=== PATIENT | male | born 1940 | race African-American/Black ===

== ENCOUNTER 2016-09-05 11:24 | Emergency (ER) | payer OTHER, MEDICARE ==
[~2016-09-05] VITALS: Ht 195.6 cm; Wt 140.7 kg
[~2016-09-05 11:24] MED LIST: ALDACTONE12.5 MG PO; ALDACTONE25 MG PO; ALLOPURINOL300 MG PO; AVAPRO150 MG PO; BENADRYL25 MG PO; COZAAR100 MG PO; ENALAPRIL MALEAT5 MG PO; GLIPIZIDE5 MG; GLUCOPHAGE XR1000 MG PO; GLUCOPHAGE1000 MG; LASIX20 MG PO; LIDOCAINE700 MG TD; LIPITOR40 MG PO; LO-DOSE ASPIRIN81 M1 PO; MAG-AL PLUS SUS30 ML PO; NEURONTIN300 MG PO; NORVASC5 MG PO; OXYCODONE HCL5 MG PO; PERCOCET 5/31 TABLET PO; PRILOSEC20 MG PO; SENNA PLUS TAB1 EACH PO; TYLENOL REGULA325 MG PO; XARELTO10 MG PO; ZOCOR80 MG PO; ZYLOPRIM100 MG PO
[2016-09-05 12:06] LABS: EOSINOPHIL (%) 5.5 % (0-5); EOSINOPHIL COUNT 0.4 K/uL (0-0.3); HEMATOCRIT 40.8 % (38.0-50.0); IMMATURE GRANULOCYTE (%) 0.2 % (0.0-0.7); LYMPHOCYTE COUNT 1.6 K/uL (1.0-2.8); MCH 30.8 PG (29.0-34.0); MCHC 32.1 G/DL (30.0-36.0); MEAN PLAT.VOLUME 10.8 uM^3 (9.0-12.4); MONOCYTE (%) 6.6 % (3-12); MONOCYTE COUNT 0.4 K/uL (0-0.8); NEUTROPHIL (%) 62.5 % (45-76); PLATELET COUNT 222 K/uL (156-360); RBC DIS.WIDTH-SD 49.7 % (39-53); RED BLOOD COUNT 4.25 M/uL (4.00-5.50); WHITE BLOOD COUNT 6.4 K/uL (4.1-10.2)
[2016-09-05 12:16] LABS: CHLORIDE 105 mEq/L (99-109); POTASSIUM 4.3 mEq/L (3.7-5.4); SODIUM 139 mEq/L (136-147)
[2016-09-05 12:19] LABS: GLUCOSE 132 mg/dL (70-99)
[2016-09-05 12:20] LABS: ANION GAP 11 MEQ/L (2-14)
[2016-09-05 12:21] LABS: TOTAL BILIRUBIN 0.4 mg/dL (0.0-1.0)
[2016-09-05 12:22] LABS: ALKALINE PHOSPHATASE 125 IU/L (3-129); GFR ESTIMATE (CALCULATED) > 59 mL/min/
[2016-09-05 12:23] LABS: UREA NITROGEN (BUN) 26 mg/dL (9-23)
[2016-09-05] MEDS ORDERED: DOXYCYCLINE HY100 MG PO (14:50)
[2016-09-05 16:59] VITALS: BP 150/79
== END 2016-09-05 17:00 | disposition home or self-care (01) ==
LOC: EME 11:24
PROVIDERS: Nurse Practitioner Family
DX: L03.116 Cellulitis of left lower limb (principal); I89.0 Lymphedema, not elsewhere classified; E11.9 Type 2 diabetes mellitus without complications; I10 Essential (primary) hypertension; G89.29 Other chronic pain; K21.9 Gastro-esophageal reflux disease without esophagitis; Z96.652 Presence of left artificial knee joint; Z79.84 Long term (current) use of oral hypoglycemic drugs; Z85.46 Personal history of malignant neoplasm of prostate
CPT/HCPCS: 71020; 80053; 83605; 85025; 93971; 99281; 99285; J7050